=== PATIENT | female | born 1965 | race Caucasian/White ===

== ENCOUNTER 2016-11-01 20:58 | Emergency (ER) | payer BC ==
[~2016-11-01] VITALS: Ht 152.4 cm; Wt 102.0 kg
[~2016-11-01 20:58] MED LIST: MECL25TA2 PO
[2016-11-01 21:01] VITALS: Ht 152.4 cm; Wt 102.0 kg
[2016-11-01] MEDS ORDERED: HYDROCODONE/APAP (5/325) TAB PO ONE (22:00)
--- NOTE | 2016-11-01 22:33 | ERD ---
ER Documentation Chief Complaint Date/Time DATE: 11/01/16 Chief Complaint Left hand swelling HPI The patient is a 50-year-old female who presents the Emergency Department with complaint of intermittent joint swelling. The patient reports that approximately 10 days ago she developed erythema and swelling of the left ankle joint. At the time, she was experiencing pain to the joint, but the pain and erythema has since resolved. She continues to experience minimal swelling of the left ankle. Since one week ago the patient has been experiencing intermittent swelling and pain to the wrist joints. She was seen at an outpatient urgent care one week ago for these symptoms, and lace on a course of penicillin, which she has taken as prescribed. However, by taking the antibiotics she continues to experience intermittent pain and swelling. Since this morning the patient has been experiencing pain and swelling to the right wrist joint. The pain is worse with any range of motion, and mildly proved with rest and elevation. She denies any numbness, paresthesias or weakness of the distal extremity. Denies any erythema of the joint. Denies fevers, chills, nausea, vomiting. She rates her current pain as 6 out of 10. The patient notes that she did take ibuprofen earlier today with only minimal relief of symptoms. She denies history of rheumatoid arthritis, gout, osteoarthritis or any other rheumatologic conditions. The patient works as a cook. ROS All systems reviewed and are negative except as per history of present illness. Medications Home Meds Active Scripts Ibuprofen* (Motrin*) 600 Mg Tab, 600 MG PO Q6, #30 TAB Prov:ESTELLE FLYNN PA-C 11/01/16 Hydrocodone/Acetaminophen (Basehor 5-325 Tablet) 1 Each Tablet, 1 EACH PO Q6, #10 TAB Prov:ESTELLE FLYNN PA-C 11/01/16 Meclizine Hcl* (Antivert*) 25 Mg Tablet, 25 MG PO Q8 Y for NAUSEA, #30 TAB Prov:KIMBERLYN ALEGRIA DO 11/18/15 Allergies Allergies: Coded Allergies: No Known Allergy (Unverified , 11/18/15) PMhx/Soc History of Surgery: Yes (Gallbladder) Anesthesia Reaction: No Hx Neurological Disorder: No Hx Respiratory Disorders: No Hx Cardiac Disorders: Yes (HTN ) Hx Psychiatric Problems: No Hx Miscellaneous Medical Probl: Yes (DIABETES TYPE 2 ) Hx Alcohol Use: No Hx Substance Use: No Hx Tobacco Use: No Smoking Status: Never smoker Physical Exam Vitals Vital Signs Date Time Temp Pulse Resp B/P Pulse Ox O2 Delivery O2 Flow Rate FiO2 11/01/16 21:01 99.3 102 20 177/84 100 Physical Exam GENERAL: Well-developed, well-nourished, female, in no acute distress. Nontoxic in appearance. HEENT: Head is normocephalic, atraumatic. No scleral pallor or icterus. Conjunctiva pink. Moist mucous membranes. NECK: Supple. Full range of motion. RESPIRATORY: Lungs are clear to auscultation bilaterally. Equal breath sounds. CARDIOVASCULAR: Regular rate and rhythm. S1 and S2 normal. No murmurs. EXTREMITIES: Minimal swelling to the lateral malleolus of the left ankle. No warmth, erythema or tenderness of the left ankle joint. No tenderness to palpation over the left wrist joint, with no erythema, no warmth, no swelling. Right wrist joint with minimal swelling and warmth. However, no erythema, no lymphatic streaking. Tenderness to palpation over the right wrist, with pain upon range of motion. Negative Tinel sign. Positive Phalen maneuver. No restricted range of motion. Distal neurovascular status is intact. No crepitus. No clubbing or cyanosis. Normal skin perfusion. Full range of motion of both the lower extremities bilaterally. Muscle tone is normal. Compartments are soft. Distal pulses are palpable, 2+ bilaterally. Capillary refill is less than 2 seconds. NEUROLOGIC: The patient is alert, awake, and oriented. Motor and sensation grossly intact. INTEGUMENT: Skin is intact. Warm and dry. No rashes, no petechiae present. PSYCHIATRIC: Cooperative. Results 24 hrs Current Medications Medications (Trade) Dose Ordered Sig/Shruti Route PRN Reason Start Time Stop Time Status Last Admin Dose Admin Acetaminophen/ Hydrocodone Bitart (Basehor (5/325)) 1 tab ONCE ONCE PO 11/01/16 22:00 11/01/16 22:01 DC 11/01/16 22:05 Procedures/MDM DIAGNOSTIC TESTS AND INTERPRETATION: PROCEDURE: Left ankle. CLINICAL INDICATION: Pain. TECHNIQUE: Three views including AP, lateral and oblique views of the left ankle were performed. COMPARISON: None. FINDINGS:There is no fracture, dislocation or bone destruction. The ankle mortise is within normal limits. Bone mineralization is within normal limits. There is no radiopaque foreign body or abnormal calcification. There are small dorsal and plantar calcaneal spurs. IMPRESSION:No evidence of fracture. Small calcaneal spurs. .Bob Almanzar MD, MD Date Time Electronically viewed and signed by .Bob Almanzar MD, MD on 11/01/2016 23:17 PROCEDURE: Left wrist. CLINICAL INDICATION: Pain. TECHNIQUE: Three views including PA, lateral and oblique views were performed. COMPARISON: None. FINDINGS:There is no fracture, dislocation or bone destruction. The joint spaces are within normal limits. Bone mineralization is within normal limits. There is no radiopaque foreign body or abnormal calcification. IMPRESSION:No evidence of fracture. .Bob Almanzar MD, MD Date Time Electronically viewed and signed by .Bob Almanzar MD, MD on 11/01/2016 23:13 PROCEDURE: Right wrist. CLINICAL INDICATION: Pain. TECHNIQUE: Three views including PA, lateral and oblique views of the right wrist were performed. COMPARISON: None. FINDINGS:There is no fracture, dislocation or bone destruction. The joint spaces are within normal limits. Bone mineralization is within normal limits. There is no radiopaque foreign body or abnormal calcification. IMPRESSION:No evidence of fracture. .Bob Almanzar MD, MD Date Time Electronically viewed and signed by .Bob Almanzar MD, MD on 11/01/2016 23:15 MARILEE WRAP APPLICATION: INDICATION:Right wrist pain and swelling. LOCATION: Right upper extremity, wrist. NEUROVASCULAR EXAM: The patients extremity was neurovascularly intact prior to and status post velcro splint placement. MEDICAL DECISION MAKING: This is a 50-year-old female presenting to the emergency department with pain and swelling to the right wrist joint for one week. Approximately 10 days ago the patient developed pain and swelling to left ankle, though the pain has since resolved, and the swelling has mildly improved. Over the past week, she has been experiencing intermittent pain and swelling to the wrist joints. She was seen at an Urgent Care last week and placed on Penicillin. She presents today with right wrist pain and swelling. She has no pain or swelling to the left wrist at this time. On physical examination, the patient had mild swelling and warmth to the right wrist joint. She had a positive Phalan maneuver, but negative tinel's sign. Otherwise, no evidence of cellulitis. No significant tenderness to palpation. Range of motion was intact, with no crepitus, no restriction. Distal pulses 2+ bilaterally. Compartments are soft. Distal neurovascular status intact. Differential diagnosis includes, but is not limited to, gout, pseudogout, infectious arthritis, trauma, osteoarthritis, reactive arthritis, aseptic necrosis, rheumatoid arthritis, systemic lupus erythematosus, sickle cell disease, osteomyelitis, psoriatic arthritis, cellulitis, bursitis, carpal tunnel syndrome, neuropathy. No current evidence of septic arthritis, aseptic necrosis, osteomyelitis, fracture, dislocation, subluxation, gout, avascular necrosis or any other emergent medical condition. X-ray imaging performed with no acute findings noted. After rest and administration of Basehor, the patient reports no new complaints, and decreased in pain and discomfort. Her right wrist was placed in a velcro wrist splint. Upon my review and interpretation of the patient's presentation and overall ER course, I believe the patient's symptoms are most consistent with right wrist pain and swelling, uncertain etiology, but possibly secondary to underlying carpal tunnel syndrome. However, at this time, cannot rule out underlying rheumatologic etiology. However, no indication for aspiration at this time. The patient is advised to follow up with her primary care provider, and blunger machine operator, if necessary, for reevaluation and further management within the next 1-2 days, or return to the ER sooner for any new or worsening symptoms , development of fevers, restricted range of motion, vomiting, or any other concerning symptoms. She will be discharged home with a prescription for Basehor and Ibuprofen. I shared my medical decision making, plan and diagnostic test results with the patient at length and in great detail, and she verbally understands and agrees with the plan for further observation and care as an outpatient. At the time of discharge, all questions were answered. The patient's case was reviewed and discussed with Dr. Salcido, ED supervising physician, who agrees with management and plan. Recommends that the patient be discharged home to follow-up with her blunger machine operator as an outpatient. No indication for further evaluation in the ED. Recommends against laboratory testing at this time. Departure Diagnosis: Primary Impression: Pain and swelling of right wrist Additional Impression: Left ankle swelling Condition: Stable Patient Instructions: [facility] Referrals: BRODY MCKEON MD Additional Instructions: Call your primary care doctor TOMORROW for an appointment during the next 1-2 days for reevaluation and further management. See the doctor sooner or return here if your condition worsens before your appointment time. ESTELLE FLYNN PA-C Nov 01, 2016 22:33
--- NOTE | 2016-11-01 23:14 | RADRPT ---
PROCEDURE: Left wrist. CLINICAL INDICATION: Pain. TECHNIQUE: Three views including PA, lateral and oblique views were performed. COMPARISON: None. FINDINGS: There is no fracture, dislocation or bone destruction. The joint spaces are within normal limits. Bone mineralization is within normal limits. There is no radiopaque foreign body or abnormal calcif ication. IMPRESSION: No evidence of fracture. .Bob Almanzar MD, Date Time Electronically viewed and signed by .Bob Almanzar MD, on 11/01/2016 23:13 .T/
--- NOTE | 2016-11-01 23:15 | RADRPT ---
PROCEDURE: Right wrist. CLINICAL INDICATION: Pain. TECHNIQUE: Three views including PA, lateral and oblique views of the right wrist were performed. COMPARISON: None. FINDINGS: There is no fracture, dislocation or bone destruction. The joint spaces are within normal limits. Bone mineralization is within normal limits. There is no radiopaque foreign body or abnormal calcif ication. IMPRESSION: No evidence of fracture. .Bob Almanzar MD, MD Date Time Electronically viewed and signed by .Bob Almanzar MD, on 11/01/2016 23:15 .T/
--- NOTE | 2016-11-01 23:17 | RADRPT ---
PROCEDURE: Left ankle. CLINICAL INDICATION: Pain. TECHNIQUE: Three views including AP, lateral and oblique views of the left ankle were performed. COMPARISON: None. FINDINGS: There is no fracture, dislocation or bone destruction. The ankle mortise is within normal limits. Bone mineralization is within normal limits. There is no radiopaque foreign body or abnormal calcif ication. There are small dorsal and plantar calcaneal spurs. IMPRESSION: No evidence of fracture. Small calcaneal spurs. .Bob Almanzar MD, Date Time Electronically viewed and signed by .Bob Almanzar MD, on 11/01/2016 23:17 .T/
[2016-11-01] MEDS ORDERED: IBUP-1542 PO (23:38)
[2016-11-01] MEDS ORDERED: HYDR-906 PO (23:38)
[2016-11-02 00:03] VITALS: BP 157/72; PULSE 83; RESP 16
== END 2016-11-02 00:05 | disposition home or self-care (01) ==
LOC: FTE 20:58
DX: R22.31 Localized swelling, mass and lump, right upper limb (principal); E11.9 Type 2 diabetes mellitus without complications; R22.42 Localized swelling, mass and lump, left lower limb; I10 Essential (primary) hypertension
CPT/HCPCS: 29125; 73110; 73610; Z7502; Z7610

== ENCOUNTER 2018-06-16 06:03 | Inpatient (IN) | END 2018-06-18 13:15 | disposition home or self-care (01) | DRG 743 ==